=== PATIENT | female | born 1960 | race Caucasian/White ===

== ENCOUNTER 2020-02-25 21:44 | Emergency (ER) | payer BC ==
[2020-02-26] MEDS ORDERED: methylPREDNISolone Sod Succ/PF 125 MG/2 ML VIAL ONE (00:47)
[2020-02-26] MEDS ORDERED: Ketorolac Tromethamine 30 MG/ML VIAL ONE (00:47)
[2020-02-26] MEDS ORDERED: Prochlorperazine 10 MG/2 ML VIAL IVP SCH (01:00)
--- NOTE | 2020-02-26 08:27 | CT ---
PRELIMINARY REPORT/[facility]/EMERGENCY AFTER HOURS PROCEDURE: EXAM: CTA Head and Neck with Intravenous Contrast. CT Head without Contrast. CLINICAL HISTORY: Patient here for evaluation of SANTIAGO that has been going for a week. Has been to 2 EDs and to her PCP. H ad a CT scan that was normal. SANTIAGO improved after a migraine cocktail but came back. Saw her PCP and wa s rx a muscle relaxer and then fioricet. Yesterday went back to the ED and had a CTA that showed isch emia and blockage and told to f/u. Pain on the Right frontal that radiates to the back of neck. havin g nausea. no vomiting. Some tingling to the right hand. Pain is stabbing if moving or throbbing if no t moving. TECHNIQUE: Axial CTA images of the head and neck performed with intravenous contrast. MIP reconstructed images w ere created and reviewed. Axial computed tomography images of the head/brain performed with/without intravenous contrast. Note: Per PQRS, the description of internal carotid artery percent stenosis, including 0 percent or n ormal exam, is based on [place] Symptomatic Carotid Endarterectomy Trial (NASCET) criteria. CONTRAST: With; [id number] COMPARISON: None provided. FINDINGS: CT HEAD: BRAIN: No acute intraparenchymal hemorrhage. No mass lesion. No CT evidence for acute territorial infarct. N o midline shift or extra-axial collection. VENTRICLES: No hydrocephalus. ORBITS: The orbits are unremarkable. SINUSES AND MASTOIDS: Opacification of the sphenoid sinuses with wall thickening. The other paranasal sinuses and mastoid air cells are clear. CTA NECK: COMMON CAROTID ARTERIES No significant stenosis. No dissection or occlusion. INTERNAL CAROTID ARTERIES No stenosis by NASCET criteria. No dissection or occlusion. VERTEBRAL ARTERIES No significant stenosis. No dissection or occlusion. CTA HEAD: ANTERIOR CEREBRAL ARTERIES No significant stenosis. No occlusion. No aneurysm. MIDDLE CEREBRAL ARTERIES No significant stenosis. No occlusion. No aneurysm. POSTERIOR CEREBRAL ARTERIES No significant stenosis. No occlusion. No aneurysm. BASILAR ARTERY No significant stenosis. No occlusion. No aneurysm. OTHER: SOFT TISSUES No acute finding. No masses or lymphadenopathy. BONES No acute osseous abnormality. Multilevel degenerative disc disease. IMPRESSION: 1. Unremarkable CTA of the head and neck. 2. No acute large vessel infarct, acute intracranial hemorrhage, or intracranial mass lesion. Chron ic sphenoid sinusitis. ELECTRONICALLY SIGNED BY: Pravin Richter MD Feb 26, 2020 1:35:13 AM [employer] This report is intended for review by the ordering physician only, in accordance of law. If you recei ve this report in error, please call [facility] at [phone]. FINAL REPORT CTA HEAD WITH AND WITHOUT CONTRAST: CTA NECK WITH IV CONTRAST: Axial tomograms were obtained through the head without IV enhancement. This was followed by tomogram s through the head and neck following angio protocol with IV enhancement. Multiplanar reconstruction and 3D post processing. FINDINGS: CT HEAD WITHOUT CONTRAST: No acute abnormality. I am in agreement with the preliminary report. CTA HEAD: No acute intracranial abnormality identified. The intracranial internal carotid arteries, cerebral a rteries, and basilar artery appear unremarkable. No aneurysm identified. I am in agreement with the preliminary report. CTA NECK: Extracranial carotid arteries are unremarkable. No stenosis or occlusion. Vertebral arteries are pa tent. No acute finding. I am in agreement with the preliminary report. POS: [facility]
[2020-02-26] MEDS ORDERED: Iopamidol-370 76% 500 ML 1 ML ONE (12:53)
== END 2020-02-26 02:32 | disposition home or self-care (01) ==
LOC: ERS 21:44
DX: R51.9 Headache, unspecified (principal)
CPT/HCPCS: 70496; 70498; 96365; 96375; J0780; J1885; J2930; Q9967